=== PATIENT | male | born 1950 | race Caucasian/White ===

== ENCOUNTER → 2017-05-07 | Outpatient (CLI) | payer MEDICARE ==
--- NOTE | 2017-05-07 16:23 | NM ---
EXAMINATION TYPE: NM bone/joint limited DATE OF EXAM: 05/07/2017 COMPARISON: NONE HISTORY: 66-year-old male with lower lumbar pain, worsening on the right. Pressure between the should er blades for 4 months. Frequent falls for one year. TECHNIQUE: After the intravenous administration of 25.8 mCi Tc 99m MDP. Images acquired 3 hours pos t injection. Multiple views of the lower thorax and abdomen are submitted. FINDINGS: No focal abnormal tracer accumulation is identified within the field of view. IMPRESSION: No scintigraphic abnormality by bone scan. The field of view included the lower thorax to the level o f the hips.
== END | disposition home or self-care (01) ==
LOC: RADNMMAIN 11:20
PROVIDERS: ATTEND Family Medicine
DX: M54.5 Low back pain (principal)
CPT/HCPCS: 78300; A9503

== ENCOUNTER 2017-10-18 08:17 | Inpatient (IN) | payer MEDICARE ==
[2017-10-18] MEDS ORDERED: ACETAMINOPHEN IV (For NPO) 1,000 MG in EMPTY BAG 1 BAG IVPB STA (08:38)
[2017-10-18] MEDS ORDERED: IBUPROFEN 600 MG TAB PO STA (08:38)
[2017-10-18] MEDS ORDERED: LEVOFLOXACIN 750MG-D5W PMX 750 MG in DEXTROSE/WATER 1 150ML.BAG IVPB STA (08:40)
[2017-10-18] MEDS ORDERED: IPRATROPIUM-ALBUTEROL 3 ML NEB INHALATION STA ×2 (08:40→11:40)
--- NOTE | 2017-10-18 08:43 | ED ---
General Adult HPI - General Chief complaint: Weakness Stated complaint: Weakness Time Seen by Provider: 10/18/17 08:18 Source: patient, EMS, RN notes reviewed Mode of arrival: EMS Limitations: no limitations - History of Present Illness Initial comments: This is a 67-year-old male who presents emergency Department with a fever. Patient complains he feels weak all over and lightheaded when he stands. Patient states she's also having a hard time breathing. Patient has a history of COPD and hypertension. Patient denies any chest pain or palpitations. Patient denies any abdominal pain. Patient denies nausea vomiting diarrhea. Patient states his urine is dark but there is no dysuria. Patient denies any back pain. Patient denies any headache patient denies numbness or weakness. Patient denies any recent injury or trauma. - Related Data Home Medications Medication Instructions Recorded Confirmed HYDROcodone/APAP 5-325MG [Irwin 1 tab PO Q4HR PRN 01/12/15 10/18/17 5-325] Omeprazole [PriLOSEC] 20 mg PO BID 01/12/15 10/18/17 Potassium Chloride [Klor-Con 20] 20 meq PO BID 01/12/15 10/18/17 Allopurinol [Zyloprim] 300 mg PO DAILY 10/18/17 10/18/17 Amantadine HCl [Symmetrel] 200 mg PO BID 10/18/17 10/18/17 Aspirin 81 mg PO DAILY 10/18/17 10/18/17 Carbidopa-Levodopa 25-100 mg 1 tab PO TID 10/18/17 10/18/17 [Sinemet 25-100] Gabapentin 800 mg PO QID PRN 10/18/17 10/18/17 LORazepam [Ativan] 0.5 mg PO HS PRN 10/18/17 10/18/17 Allergies Allergy/AdvReac Type Severity Reaction Status Date / Time clindamycin Allergy Unknown Verified 10/18/17 10:39 sulfur dioxide AdvReac Itching Verified 10/18/17 10:39 Review of Systems ROS Statement: Those systems with pertinent positive or pertinent negative responses have been documented in the HPI. ROS Other: All systems not noted in ROS Statement are negative. Past Medical History Past Medical History: COPD, Hypertension Additional Past Medical History / Comment(s): 01/12/15 Pt direct admission for N /V/D over the past 3 weeks with last 2 weeks worse. Pt's aptetite poor and is able to only drink water or eat jello or pudding. He states he has lost approximately. 18#s in the past 3 weeks. Pt had upper GI series 01/06/15 which showed mild Gerd with small hiatal hernia. Other HX: mid and low back pain believed to be due to artirtis. History of Any Multi-Drug Resistant Organisms: C-DIFF Date of last positivie culture/infection: 2014 MDRO Source:: stool Past Surgical History: Bowel Resection, Hernia Repair, Tonsillectomy Additional Past Surgical History / Comment(s): Partial colectomy for unknown cause (pt cannot recall why it was necessary), ruptured umbilical repair, bilateral cataract remaoval with lens implants, R elbow repair of tendons/ ligament due toinjury,. bilateral carpal tunnel surgery, colonoscopy since colectomy-normal, EGD long ago possible-pt not sure. Past Anesthesia/Blood Transfusion Reactions: No Reported Reaction Additional Past Anesthesia/Blood Transfusion Reaction / Comment(s): Pt has never recieved blood. Past Psychological History: Bipolar Smoking Status: Current every day smoker Past Alcohol Use History: None Reported Past Drug Use History: None Reported - Past Family History Father Family Medical History: Diabetes Mellitus, Hypertension Additional Family Medical History / Comment(s): Enlarged heart Mother Family Medical History: Diabetes Mellitus, Hypertension General Exam - General Exam Comments Initial Comments: GENERAL: Patient is well-developed and well-nourished. Patient is nontoxic and well- hydrated and is in mild distress. ENT: Neck is soft and supple. No significant lymphadenopathy is noted. Oropharynx is clear. Moist mucous membranes. Neck has full range of motion without eliciting any pain. EYES: The sclera were anicteric and conjunctiva were pink and moist. Extraocular movements were intact and pupils were equal round and reactive to light. Eyelids were unremarkable. PULMONARY: Patient is wheezing diffusely CARDIOVASCULAR: There is a regular rate and rhythm without any murmurs gallops or rubs. ABDOMEN: Soft and nontender with normal bowel sounds. No palpable organomegaly was noted. There is no palpable pulsatile mass. SKIN: Skin is clear with no lesions or rashes and otherwise unremarkable. NEUROLOGIC: Patient is alert and oriented x3. Cranial nerves II through XII are grossly intact. Motor and sensory are also intact. Normal speech, volume and content. Symmetrical smile. MUSCULOSKELETAL: Normal extremities with adequate strength and full range of motion. No lower extremity swelling or edema. No calf tenderness. LYMPHATICS: No significant lymphadenopathy is noted PSYCHIATRIC: Normal psychiatric evaluation. Normal interpersonal interactions appears functionally intact in deals appropriately with others. No signs of depression. No signs of anxiety. Limitations: no limitations Course Vital Signs 10/18/17 10/18/17 10/18/17 08:25 08:52 09:05 Temperature 101.5 F H Pulse Rate 90 103 H 89 Respiratory 22 Rate Blood Pressure 144/70 O2 Sat by Pulse 99 Oximetry 10/18/17 09:52 Temperature Pulse Rate 93 Respiratory 22 Rate Blood Pressure 150/62 O2 Sat by Pulse 96 Oximetry Medical Decision Making - Medical Decision Making EKG shows a normal sinus rhythm at 92 bpm HI interval 254 QRS is 92 QT interval 382 QTC is 472. There is no obvious ST segment elevation. Chest x-ray shows no acute abnormality. There is been no source identified for his fever. I spoke with Dr. Hinds and he did not want to start antibiotics at this time I bring the patient in for COPD exacerbation and for the acute fever. Patient's cultures are being run at this time. - Lab Data Result diagrams: 10/18/17 08:43 10/18/17 08:43 Lab Results 10/18/17 10/18/17 10/18/17 Range/Units 08:43 08:43 08:43 WBC 6.8 (3.8-10.6) k/uL RBC 4.59 (4.30-5.90) m/uL Hgb 11.6 L (13.0-17.5) gm/dL Hct 38.6 L (39.0-53.0) % MCV 83.9 (80.0-100.0) fL MCH 25.2 (25.0-35.0) pg MCHC 30.0 L (31.0-37.0) g/dL RDW 18.6 H (11.5-15.5) % Plt Count 226 (150-450) k/uL Neutrophils % 69 % Lymphocytes % 20 % Monocytes % 6 % Eosinophils % 0 % Basophils % 1 % Neutrophils # 4.7 (1.3-7.7) k/uL Lymphocytes # 1.4 (1.0-4.8) k/uL Monocytes # 0.4 (0-1.0) k/uL Eosinophils # 0.0 (0-0.7) k/uL Basophils # 0.1 (0-0.2) k/uL Hypochromasia Moderate Anisocytosis Slight PT (9.0-12.0) sec INR (<1.2) APTT (22.0-30.0) sec Sodium 142 (137-145) mmol/L Potassium 3.8 (3.5-5.1) mmol/L Chloride 105 (98-107) mmol/L Carbon Dioxide 24 (22-30) mmol/L Anion Gap 13 mmol/L BUN 14 (9-20) mg/dL Creatinine 1.02 (0.66-1.25) mg/dL Est GFR (CKD-EPI)AfAm 89 (>60 ml/min/1.73 sqM) Est GFR (CKD-EPI)NonAf 77 (>60 ml/min/1.73 sqM) Glucose 83 (74-99) mg/dL Plasma Lactic Acid Adeel (0.7-2.0) mmol/L Calcium 8.9 (8.4-10.2) mg/dL Total Bilirubin 0.6 (0.2-1.3) mg/dL AST 23 (17-59) U/L ALT 22 (21-72) U/L Alkaline Phosphatase 231 H (38-126) U/L Total Protein 6.8 (6.3-8.2) g/dL Albumin 3.9 (3.5-5.0) g/dL Urine Color Urine Appearance (Clear) Urine pH (5.0-8.0) Ur Specific [place] (1.001-1.035) Urine Protein (Negative) Urine Glucose (UA) (Negative) Urine Ketones (Negative) Urine Blood (Negative) Urine Nitrite (Negative) Urine Bilirubin (Negative) Urine Urobilinogen (<2.0) mg/dL Ur Leukocyte Esterase (Negative) Urine RBC (0-5) /hpf Urine WBC (0-5) /hpf Hyaline Casts (0-2) /lpf Influenza Type A RNA Not Detected (Not Detectd) Influenza Type B (PCR) Not Detected (Not Detectd) 10/18/17 10/18/17 10/18/17 Range/Units 08:43 08:43 09:45 WBC (3.8-10.6) k/uL RBC (4.30-5.90) m/uL Hgb (13.0-17.5) gm/dL Hct (39.0-53.0) % MCV (80.0-100.0) fL MCH (25.0-35.0) pg MCHC (31.0-37.0) g/dL RDW (11.5-15.5) % Plt Count (150-450) k/uL Neutrophils % % Lymphocytes % % Monocytes % % Eosinophils % % Basophils % % Neutrophils # (1.3-7.7) k/uL Lymphocytes # (1.0-4.8) k/uL Monocytes # (0-1.0) k/uL Eosinophils # (0-0.7) k/uL Basophils # (0-0.2) k/uL Hypochromasia Anisocytosis PT 10.4 (9.0-12.0) sec INR 1.1 (<1.2) APTT 23.3 (22.0-30.0) sec Sodium (137-145) mmol/L Potassium (3.5-5.1) mmol/L Chloride (98-107) mmol/L Carbon Dioxide (22-30) mmol/L Anion Gap mmol/L BUN (9-20) mg/dL Creatinine (0.66-1.25) mg/dL Est GFR (CKD-EPI)AfAm (>60 ml/min/1.73 sqM) Est GFR (CKD-EPI)NonAf (>60 ml/min/1.73 sqM) Glucose (74-99) mg/dL Plasma Lactic Acid Adeel 1.1 (0.7-2.0) mmol/L Calcium (8.4-10.2) mg/dL Total Bilirubin (0.2-1.3) mg/dL AST (17-59) U/L ALT (21-72) U/L Alkaline Phosphatase (38-126) U/L Total Protein (6.3-8.2) g/dL Albumin (3.5-5.0) g/dL Urine Color Yellow Urine Appearance Clear (Clear) Urine pH 6.5 (5.0-8.0) Ur Specific [place] 1.014 (1.001-1.035) Urine Protein 1+ H (Negative) Urine Glucose (UA) Negative (Negative) Urine Ketones 1+ H (Negative) Urine Blood Negative (Negative) Urine Nitrite Negative (Negative) Urine Bilirubin Negative (Negative) Urine Urobilinogen 2.0 (<2.0) mg/dL Ur Leukocyte Esterase Negative (Negative) Urine RBC 1 (0-5) /hpf Urine WBC 2 (0-5) /hpf Hyaline Casts 3 H (0-2) /lpf Influenza Type A RNA (Not Detectd) Influenza Type B (PCR) (Not Detectd) Disposition Clinical Impression: Febrile illness, COPD exacerbation Disposition: ADMITTED IP TO THIS HOSP Referrals: Cosme Louise MD [Primary Care Provider] - 1-2 days Time of Disposition: 11:35
[2017-10-18 08:57] LABS: Anisocytosis Slight; Basophils # (A) 0.1 k/uL (0-0.2); Basophils % (A) 1 %; Eosinophils % (A) 0 %; HCT 38.6 % (39.0-53.0); HGB 11.6 gm/dL (13.0-17.5); Hypochromasia Moderate; Lymphocytes # (A) 1.4 k/uL (1.0-4.8); Lymphocytes % (A) 20 %; MCH 25.2 pg (25.0-35.0); MCV 83.9 fL (80.0-100.0); Mean Platelet Volume 7.8; Monocytes # (A) 0.4 k/uL (0-1.0); Monocytes % (A) 6 %; Neutrophils # (A) 4.7 k/uL (1.3-7.7); Neutrophils % (A) 69 %; Platelet Count 226 k/uL (150-450); RBC 4.59 m/uL (4.30-5.90); RDW 18.6 % (11.5-15.5); WBC 6.8 k/uL (3.8-10.6)
[2017-10-18 09:09] LABS: Albumin 3.9 g/dL (3.5-5.0); Calcium 8.9 mg/dL (8.4-10.2); Potassium 3.8 mmol/L (3.5-5.1); Total Bilirubin 0.6 mg/dL (0.2-1.3); Total Protein 6.8 g/dL (6.3-8.2)
--- NOTE | 2017-10-18 09:26 | XR ---
EXAMINATION TYPE: XR chest 2V DATE OF EXAM: 10/18/2017 HISTORY: Difficulty breathing . REFERENCE: Previous study dated 01/20/2016. FINDINGS: Lung volumes are prominent. The heart is mildly prominent. There is mild interstitial castillo e. This is likely chronic. There is minimal blunting of the left CP angle. This was present previousl y and represent some pleural thickening. IMPRESSION: 1. COPD. 2. MILD CARDIOMEGALY. 3. CHRONIC LEFT PLEURAL REACTION.
[2017-10-18 09:31] LABS: INR 1.1 (<1.2); Partial Thromboplastin Time 23.3 sec (22.0-30.0); Prothrombin Time 10.4 sec (9.0-12.0)
[2017-10-18] MEDS: SODIUM CHLORIDE 0.9% 500 ML IV SCH ×2 (09:35→09:36)
[2017-10-18 10:29] LABS: Appearance,Urine Clear (Clear); Bilirubin,Urine Negative (Negative); Blood,Urine Negative (Negative); Color,Urine Yellow; Glucose,Urine (UA) Negative (Negative); Hyaline Casts,Urine 3 /lpf (0-2); Ketones,Urine 1+ (Negative); Leukocyte Esterase,Urine Negative (Negative); Nitrite,Urine Negative (Negative); PH, Urine 6.5 (5.0-8.0); Protein,Urine 1+ (Negative); RBC,Urine 1 /hpf (0-5); Specific Gravity,Urine 1.014 (1.001-1.035); WBC,Urine 2 /hpf (0-5)
[2017-10-18] MEDS ORDERED: methylPREDNISolone SOD SUCCI 125 MG/2 ML VIAL IV STA (11:35)
[2017-10-18 11:59] LABS: Creatine Kinase MB 1.8 ng/mL (0.0-2.4)
[2017-10-18 12:01] LABS: Troponin I 0.172 ng/mL (0.000-0.034)
--- NOTE | 2017-10-18 13:27 | HP ---
HISTORY AND PHYSICAL CHIEF COMPLAINT: "Weakness." HISTORY OF PRESENT ILLNESS: This is another admission for this 67-year-old white male. He has been having trouble lately, complaining of various issues such as weakness, shortness of breath, cough, and other symptoms. He is a very poor historian. He has a history of heavy alcohol consumption, which has been decreased of late. He has also been a heavy smoker and still has. He has Parkinson's disease. He came to the emergency room with very vague complaints of weakness and continuous cough with somewhat purulent appearance. He has had no fever, chills, chest pain, orthopnea, PND, , abdominal pain, nausea, vomiting, hematemesis, melena, hematochezia, jaundice, hematuria, dysuria, diabetes, etc. Laboratory studies in the emergency room are unremarkable. His chest x-ray demonstrated interstitial scarring consistent with COPD. EKG is normal. His troponin is up slightly. White count was normal and he was mildly anemic. The remainder of his studies were essentially unremarkable. Because of his troponin, vague symptoms and possible underlying infection, he was admitted for further evaluation and testing. Cultures will be obtained. PAST MEDICAL HISTORY, FAMILY HISTORY, PERSONAL AND SOCIAL HISTORIES: Reveal that he is allergic to CLINDAMYCIN. He is on: 1. Symbicort 160/4.5 two puffs b.i.d. 2. Ventolin HFA 2 puffs q.i.d. p.r.n. 3. He recently came off Cipro. 4. He is on potassium 20 mEq twice a day. 5. Carbidopa-levodopa 25-100 t.i.d. 6. Amantadine 100 mg 2 twice a day. 7. Zofran p.r.n. 8. Allopurinol 300 mg once a day. 9. Omeprazole 20 mg twice a day. 10.Gabapentin 800 mg 4 times a day. 11.Vitamin D. 12.Ativan 0.5 at bedtime p.r.n. 13.Vicodin 5-325 q.4 p.r.n. back pain. 14.81 mg of aspirin. He continues to smoke, but he states he has stopped drinking. PHYSICAL EXAM: Blood pressure 116/74 with a pulse of 86, regular respirations of 34 and is afebrile. In general, he appeared to be tremulous due to his Parkinson's disease. Skin color is normal, skin is warm and dry. Lymph nodes are not enlarged. Head, ears, eyes, nose, mouth, and throat were normal. Neck veins are not distended. Chest demonstrated increased AP diameter with poor breath sounds and scattered rales. There is no wheezing. Cardiac exam demonstrates sinus rhythm and no murmurs or extra sounds. The abdomen is slightly protuberant, soft, and he was possibly slightly tender in the left lower quadrant, but this was not consistent. There are no masses or visceromegaly. Bowel sounds are heard. Extremities are normal. Neurologically, other than his Parkinson's tremor, he is normal. IMPRESSION: 1. Generalized weakness. 2. ? septicemia. 3. Elevated troponin. 4. Chronic obstructive pulmonary disease. 5. Parkinson's disease. 6. History of alcohol abuse. PLAN: 1. Bed rest. 2. IV fluids. 3. Cardiology consult. 4. Infectious Disease consult. 5. Appropriate cultures. MMODL / IJN: [id number] /
[2017-10-18] MEDS: IPRATROPIUM-ALBUTEROL 3 ML NEB INHALATION PRN ×2 (15:21→21:16)
[2017-10-18] MEDS: INSULIN ASPART 100 UNIT/ML 1 ML 10 ML VIAL SQ SCH (17:34)
[2017-10-18] MEDS: CARBIDOPA-LEVODOPA 25-100 MG 1 EACH TAB PO SCH ×2 (17:41→20:32)
[2017-10-18] MEDS: methylPREDNISolone SOD SUCCI 125 MG/2 ML VIAL IV SCH (17:43)
[2017-10-18] MEDS: GABAPENTIN 400 MG CAP PO PRN (20:30)
[2017-10-18] MEDS: AMANTADINE HCL 100 MG CAP PO SCH (20:31)
[2017-10-18] MEDS: PANTOPRAZOLE 40 MG TABLET PO SCH (20:32)
[2017-10-18] MEDS: POTASSIUM CHLORIDE ER 20 MEQ TAB.ER PO SCH (20:32)
[2017-10-18 21:01] LABS: Glucose,Whole Blood 162 mg/dL (75-99)
[2017-10-19] MEDS: INSULIN ASPART 100 UNIT/ML 1 ML 10 ML VIAL SQ SCH ×5 (00:03→21:18)
[2017-10-19] MEDS: methylPREDNISolone SOD SUCCI 125 MG/2 ML VIAL IV SCH ×5 (00:15→22:57)
[2017-10-19 06:08] LABS: Glucose,Whole Blood 139 mg/dL (75-99)
[2017-10-19] MEDS: IPRATROPIUM-ALBUTEROL 3 ML NEB INHALATION PRN ×3 (07:55→19:11)
[2017-10-19 07:59] LABS: Anisocytosis Slight; HCT 37.8 % (39.0-53.0); HGB 11.9 gm/dL (13.0-17.5); Hypochromasia Moderate; MCH 26.6 pg (25.0-35.0); MCHC 31.4 g/dL (31.0-37.0); MCV 84.7 fL (80.0-100.0); Mean Platelet Volume 7.6; Platelet Count 234 k/uL (150-450); RBC 4.47 m/uL (4.30-5.90); RDW 18.1 % (11.5-15.5); WBC 6.2 k/uL (3.8-10.6)
[2017-10-19 08:14] LABS: ALT 17 U/L (21-72); AST 14 U/L (17-59); Albumin 3.5 g/dL (3.5-5.0); Alkaline Phosphatase 158 U/L (38-126); Anion Gap 12 mmol/L; Blood Urea Nitrogen 18 mg/dL (9-20); Calcium 9.5 mg/dL (8.4-10.2); Carbon Dioxide 23 mmol/L (22-30); Chloride 107 mmol/L (98-107); Glucose 152 mg/dL (74-99); Magnesium 1.9 mg/dL (1.6-2.3); Potassium 4.5 mmol/L (3.5-5.1); Sodium 142 mmol/L (137-145); Total Bilirubin 0.4 mg/dL (0.2-1.3); Total Protein 6.2 g/dL (6.3-8.2)
[2017-10-19] MEDS: PANTOPRAZOLE 40 MG TABLET PO SCH ×2 (09:00→21:20)
[2017-10-19] MEDS: ASPIRIN 81 MG PO SCH (09:00)
[2017-10-19] MEDS: AMANTADINE HCL 100 MG CAP PO SCH ×2 (09:00→21:19)
[2017-10-19] MEDS: ALLOPURINOL 300 MG TAB PO SCH (09:00)
[2017-10-19] MEDS: CARBIDOPA-LEVODOPA 25-100 MG 1 EACH TAB PO SCH ×3 (09:00→21:20)
[2017-10-19] MEDS: POTASSIUM CHLORIDE ER 20 MEQ TAB.ER PO SCH ×2 (09:01→21:20)
--- NOTE | 2017-10-19 09:37 | CONS ---
CONSULTATION CHIEF COMPLAINT: Elevated troponin. HISTORY OF PRESENT ILLNESS: Felipe is a 67-year-old gentleman with history of parkinsonism and COPD, who presents to the hospital primarily complaining of feeling fatigued, tired and being somewhat unstable on his feet. He also complains of shortness of breath and cough. The patient sees Dr. Louise. Per his notation, the patient has history of ETOH abuse. In the ER for unclear reasons, troponin was done that came back mildly elevated for which Cardiology has been consulted. He does not have any chest pain, palpitations, dizziness or syncope. At the time of my evaluation, he is having his breakfast. Seems somewhat tremulous, but is otherwise doing well. PAST MEDICAL HISTORY: Significant for parkinsonism. MEDICATIONS: Include aspirin, Vicodin, Ativan, Neurontin, omeprazole, allopurinol, Zofran, amantadine, carbidopa, Symbicort, and Ventolin. FAMILY HISTORY: Negative for premature coronary artery disease. SOCIAL HISTORY: Negative for smoking, EtOH abuse, or drug abuse. REVIEW OF SYSTEMS: HEENT is unremarkable. Cardiac as described above. Respiratory negative. GI negative. Genitourinary: Negative. Musculoskeletal significant for arthritis. Psychosocial negative. Endocrine negative. Derm negative. Oncological negative. Rest of the systems review is not relevant. 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 CONSTITUTIONAL: Significant for fatigue, tiredness, and lack of balance. PHYSICAL EXAMINATION: On exam, comfortable at rest. Heart rate is 86 with a blood pressure 130/71, respiratory rate 18. Chest exam reveals diminished air entry at the bases. Heart exam reveals first and second heart sounds. No gallop. Exam of extremities did not reveal any edema. Peripheral pulses are felt. EKG shows sinus rhythm and evidence of prior anterior myocardial infarction. LABORATORY: Hemoglobin of 11.9, creatinine is 0.8, tropes are mildly elevated. ASSESSMENT: 1. Mild troponin elevation of unclear clinical significance in this patient whose clinical presentation is not consistent with acute myocardial ischemia. 2. Chronic obstructive pulmonary disease exacerbation. 3. History of ETOH abuse. 4. Parkinsonism. PLAN: I am going to treat the patient with an aspirin. Check lipid profile. Treat accordingly. I will obtain a 2D echo to assess LV function. We will decide on further course of action based on what the initial workup shows. MMODL / IJN: [id number] /
[2017-10-19] MEDS: GABAPENTIN 400 MG CAP PO PRN ×2 (09:40→21:45)
--- NOTE | 2017-10-19 10:56 | P.CONS ---
History of Present Illness - Reason for Consult Consult date: 10/19/17 - Chief Complaint Fever - History of Present Illness 67-year-old male presents to emergency center with a three-day history of fever with chills associated with increasing shortness of breath he also had several bouts of diarrhea. In general the patient feels quite poorly, shortness of breath is worse than his baseline, is having cough with minimal sputum production. He remains an active tobacco smoker but less than he did in the past. He is denying significant abdominal pain. He is having no nausea or emesis. He is in no hematemesis motor or hematochezia. His appetite has been adequate, he denies any significant weight loss. Review of Systems HEENT:Denies headache or acute visual change. Denies sinus or mouth discomforts. Denies neck stiffness or pain. Denies significant oral cavity pain. Denies difficulty on swallowing. Lungs: As per the HPI has chronic shortness of breath that is worsened, he has cough without much sputum production or hemoptysis Cardiovascular: Denies chest pain, chest wall pain, orthopnea, or syncope, does have dyspnea on exertion Gastrointestinal:Denies nausea, vomiting, constipation, hematemesis, melena, hematochezia. As related was having some loose stool about 3 within the last day, soft with some form Musculoskeletal: denies significant myalgias or arthralgias. No new joint swelling. Denies new back pain. Skin: Denies new rash or lesions. No new ulcers or wounds are related.. Neuro: Denies headache or visual change. Denies any new onset weakness or difficulty with ambulation. Denies falls or seizures. Psychiatric: Chronic anxiety Endocrine: Ongoing chronic fatigue weight is been stable Past Medical History Past Medical History: COPD, Hypertension Additional Past Medical History / Comment(s): nerve pain from, Shingles (2Y ago) , States Dr. Louise stopped his BP pills when he quit drinking. " No longer have high blood pressure" History of Any Multi-Drug Resistant Organisms: C-DIFF Year Discovered:: 2014 MDRO Source:: stool Past Surgical History: Bowel Resection, Hernia Repair, Tonsillectomy Additional Past Surgical History / Comment(s): Partial colectomy for unknown cause (pt cannot recall why it was necessary), ruptured umbilical repair, bilateral cataract remaoval with lens implants, R elbow repair of tendons/ ligament due to injury,. bilateral carpal tunnel surgery, colonoscopy since colectomy-normal, Past Anesthesia/Blood Transfusion Reactions: No Reported Reaction Additional Past Anesthesia/Blood Transfusion Reaction / Comm: Pt has never recieved blood. Past Psychological History: Bipolar Additional Psychological History / Comment(s): Pt's son live with him. Ex spouse lives there as well. He is independent. He is suppose to use a cane but will not. He drives. He has no home care. . Retired labor. No experience. No international travel. Pet dog in the home. Son has legal blindness from his uncontrolled diabetes, the patient's ex- does help with the son and the dog as needed Smoking Status: Current some day smoker Past Alcohol Use History: None Reported Additional Past Alcohol Use History / Comment(s): Pt states he started smoking at age 15 yrs and currently smokes between a pack and a pack and a half a day. He drinks alcohol occasionally- less than 14 a week. Past Drug Use History: None Reported - Past Family History Father Family Medical History: Diabetes Mellitus, Hypertension Additional Family Medical History / Comment(s): Enlarged heart Mother Family Medical History: Diabetes Mellitus, Hypertension Medications and Allergies Home Medications and Allergies Comment(s): Current Medications Acetaminophen (Tylenol Tab) 650 mg PO Q4HR PRN PRN Reason: Fever and/ or mild Pain Albuterol/Ipratropium (Duoneb 0.5 Mg-3 Mg/3 Ml Soln) 3 ml INHALATION RT-Q4H PRN PRN Reason: Shortness Of Breath Or Wheezing Last Admin: 10/19/17 07:55 Dose: 3 ml Allopurinol (Zyloprim) 300 mg PO DAILY [facility] Last Admin: 10/19/17 09:00 Dose: 300 mg Amantadine HCl (Symmetrel) 200 mg PO BID [facility] Last Admin: 10/19/17 09:00 Dose: 200 mg Aspirin (Aspirin) 81 mg PO DAILY [facility] Last Admin: 10/19/17 09:00 Dose: 81 mg Carbidopa/Levodopa (Sinemet 25-100) 1 each PO TID [facility] Last Admin: 10/19/17 09:00 Dose: 1 each Gabapentin (Neurontin) 800 mg PO QID PRN PRN Reason: Nerve Pain Last Admin: 10/19/17 09:40 Dose: 800 mg Insulin Aspart (Novolog) 0 unit SQ ACHS BECK PRN Reason: Protocol Last Admin: 10/19/17 06:50 Dose: 1 unit Lorazepam (Ativan) 0.5 mg PO HS PRN PRN Reason: Anxiety Methylprednisolone Sodium Succinate (Solu-Medrol) 60 mg IV Q6HR [facility] Last Admin: 10/19/17 06:48 Dose: 60 mg Pantoprazole Sodium (Protonix) 40 mg PO BID [facility] Last Admin: 10/19/17 09:00 Dose: 40 mg Potassium Chloride (K-Dur 20) 20 meq PO BID [facility] Last Admin: 10/19/17 09:01 Dose: 20 meq Home Medications Medication Instructions Recorded Confirmed Type HYDROcodone/APAP 5-325MG [[place] 1 tab PO Q4HR PRN 01/12/15 10/18/17 History 5-325] Omeprazole [PriLOSEC] 20 mg PO BID 01/12/15 10/18/17 History Potassium Chloride [Klor-Con 20] 20 meq PO BID 01/12/15 10/18/17 History Allopurinol [Zyloprim] 300 mg PO DAILY 10/18/17 10/18/17 History Amantadine HCl [Symmetrel] 200 mg PO BID 10/18/17 10/18/17 History Aspirin 81 mg PO DAILY 10/18/17 10/18/17 History Carbidopa-Levodopa 25-100 mg 1 tab PO TID 10/18/17 10/18/17 History [Sinemet 25-100] Gabapentin 800 mg PO QID PRN 10/18/17 10/18/17 History LORazepam [Ativan] 0.5 mg PO HS PRN 10/18/17 10/18/17 History Allergies Allergy/AdvReac Type Severity Reaction Status Date / Time clindamycin Allergy Unknown Verified 10/18/17 10:39 sulfur dioxide AdvReac Itching Verified 10/18/17 10:39 Physical Exam Vitals: Vital Signs Temp Pulse Pulse Resp BP BP Pulse Ox 10/19/17 08:08 86 10/19/17 08:00 97.5 F L 89 20 139/67 93 L 10/19/17 07:57 86 10/19/17 04:00 97.9 F 81 20 130/71 96 10/19/17 00:00 97.5 F L 99 20 144/67 95 10/18/17 21:26 90 10/18/17 21:16 88 10/18/17 20:00 97.3 F L 94 20 130/67 100 10/18/17 17:33 97.5 F L 81 20 122/60 97 10/18/17 17:31 81 18 10/18/17 16:54 97.8 F 87 18 131/61 95 10/18/17 15:41 86 10/18/17 15:21 80 10/18/17 14:26 98.0 F 88 18 120/58 96 10/18/17 13:22 97.9 F 85 20 123/61 92 L 10/18/17 12:06 76 10/18/17 11:56 76 10/18/17 11:53 97.5 F L 81 20 122/60 97 10/18/17 11:46 75 22 117/56 97 10/18/17 11:42 98.9 F Intake and Output 10/18/17 10/19/17 10/19/17 22:59 06:59 14:59 Intake Total 100 120 Output Total 0 600 100 Balance 100 -600 20 Intake: Oral 100 120 Output: Urine 0 600 100 Stool 0 0 Other: Voiding Method Toilet Toilet Toilet Urinal Urinal Urinal # Voids 0 0 1 # Bowel Movements 0 Weight 87.6 kg 67-year-old male appears older than his stated age. HEENT: Anicteric conjunctiva are pink and moist nasal mucosa grossly intact without significant lesions, there is no thrush. He is edentulous, no denture Neck: The neck is supple without significant lymphadenopathy or thyromegaly. Lungs: There is symmetrical air entry. There is evidence of expiratory wheezes in all baer. No distinct bronchial sounds. No dullness or egophony Heart: Slightly irregular with an audible S1 and S2 soft S4 There is no significant murmur click or rub, PMI was nondisplaced. Abdomen: Positive bowel sounds soft, scant tenderness in the epigastrium without palpable masses or organomegaly. There was no guarding or rebound. Extremities: Upper shoulders have evidence of probable pulses no open lesions are seen. Lower extremities have bilateral lower extremity edema, no open lesions are seen. Peripheral pulses are palpable with diminished feet are cool but not frankly cold no ischemic ulcers are seen Neuro: Awake alert oriented to person place and time. There are no acute new gross focal sensory motor deficits. Results CBC & Chem 7: 10/19/17 07:37 10/19/17 07:37 Labs: Abnormal Lab Results - Last 24 Hours (Table) 10/18/17 10/18/17 10/18/17 Range/Units 08:43 14:29 20:59 Hgb (13.0-17.5) gm/dL Hct (39.0-53.0) % RDW (11.5-15.5) % Glucose (74-99) mg/dL POC Glucose (mg/dL) 162 H (75-99) mg/dL AST (17-59) U/L ALT (21-72) U/L Alkaline Phosphatase (38-126) U/L Troponin I 0.172 H* 0.115 H* (0.000-0.034) ng/mL Total Protein (6.3-8.2) g/dL 10/18/17 10/19/17 10/19/17 Range/Units 21:14 06:06 07:37 Hgb 11.9 L (13.0-17.5) gm/dL Hct 37.8 L (39.0-53.0) % RDW 18.1 H (11.5-15.5) % Glucose (74-99) mg/dL POC Glucose (mg/dL) 139 H (75-99) mg/dL AST (17-59) U/L ALT (21-72) U/L Alkaline Phosphatase (38-126) U/L Troponin I 0.061 H* (0.000-0.034) ng/mL Total Protein (6.3-8.2) g/dL 10/19/17 Range/Units 07:37 Hgb (13.0-17.5) gm/dL Hct (39.0-53.0) % RDW (11.5-15.5) % Glucose 152 H (74-99) mg/dL POC Glucose (mg/dL) (75-99) mg/dL AST 14 L (17-59) U/L ALT 17 L (21-72) U/L Alkaline Phosphatase 158 H (38-126) U/L Troponin I (0.000-0.034) ng/mL Total Protein 6.2 L (6.3-8.2) g/dL Microbiology - Last 24 Hours (Table) 10/18/17 09:45 Urine Culture - Preliminary Urine,Voided Laboratory Results WBC 6.2 k/uL (3.8-10.6) 10/19/17 07:37 RBC 4.47 m/uL (4.30-5.90) 10/19/17 07:37 Hgb 11.9 gm/dL (13.0-17.5) L 10/19/17 07:37 Hct 37.8 % (39.0-53.0) L 10/19/17 07:37 MCV 84.7 fL (80.0-100.0) 10/19/17 07:37 MCH 26.6 pg (25.0-35.0) 10/19/17 07:37 MCHC 31.4 g/dL (31.0-37.0) 10/19/17 07:37 RDW 18.1 % (11.5-15.5) H 10/19/17 07:37 Plt Count 234 k/uL (150-450) 10/19/17 07:37 Neutrophils % 69 % 10/18/17 08:43 Lymphocytes % 20 % 10/18/17 08:43 Monocytes % 6 % 10/18/17 08:43 Eosinophils % 0 % 10/18/17 08:43 Basophils % 1 % 10/18/17 08:43 Neutrophils # 4.7 k/uL (1.3-7.7) 10/18/17 08:43 Lymphocytes # 1.4 k/uL (1.0-4.8) 10/18/17 08:43 Monocytes # 0.4 k/uL (0-1.0) 10/18/17 08:43 Eosinophils # 0.0 k/uL (0-0.7) 10/18/17 08:43 Basophils # 0.1 k/uL (0-0.2) 10/18/17 08:43 Hypochromasia Moderate 10/19/17 07:37 Anisocytosis Slight 10/19/17 07:37 PT 10.4 sec (9.0-12.0) 10/18/17 08:43 INR 1.1 (<1.2) 10/18/17 08:43 APTT 23.3 sec (22.0-30.0) 10/18/17 08:43 Sodium 142 mmol/L (137-145) 10/19/17 07:37 Potassium 4.5 mmol/L (3.5-5.1) 10/19/17 07:37 Chloride 107 mmol/L (98-107) 10/19/17 07:37 Carbon Dioxide 23 mmol/L (22-30) 10/19/17 07:37 Anion Gap 12 mmol/L 10/19/17 07:37 BUN 18 mg/dL (9-20) 10/19/17 07:37 Creatinine 0.80 mg/dL (0.66-1.25) 10/19/17 07:37 Est GFR (CKD-EPI)AfAm >90 (>60 ml/min/1.73 sqM) 10/19/17 07:37 Est GFR (CKD-EPI)NonAf >90 (>60 ml/min/1.73 sqM) 10/19/17 07:37 Glucose 152 mg/dL (74-99) H 10/19/17 07:37 POC Glucose (mg/dL) 139 mg/dL (75-99) H 10/19/17 06:06 POC Glu Checkout Supervisor DAGO Hilda Enrique 10/19/17 06:06 Plasma Lactic Acid Adeel 1.1 mmol/L (0.7-2.0) 10/18/17 08:43 Calcium 9.5 mg/dL (8.4-10.2) 10/19/17 07:37 Magnesium 1.9 mg/dL (1.6-2.3) 10/19/17 07:37 Total Bilirubin 0.4 mg/dL (0.2-1.3) 10/19/17 07:37 AST 14 U/L (17-59) L 10/19/17 07:37 ALT 17 U/L (21-72) L 10/19/17 07:37 Alkaline Phosphatase 158 U/L (38-126) H 10/19/17 07:37 Total Creatine Kinase 91 U/L (55-170) 10/18/17 08:43 CK-MB (CK-2) 1.8 ng/mL (0.0-2.4) 10/18/17 08:43 CK-MB (CK-2) Rel Index 2.0 10/18/17 08:43 Troponin I 0.061 ng/mL (0.000-0.034) H* 10/18/17 21:14 Total Protein 6.2 g/dL (6.3-8.2) L 10/19/17 07:37 Albumin 3.5 g/dL (3.5-5.0) 10/19/17 07:37 Urine Color Yellow 10/18/17 09:45 Urine Appearance Clear (Clear) 10/18/17 09:45 Urine pH 6.5 (5.0-8.0) 10/18/17 09:[address] 1.014 (1.001-1.035) 10/18/17 09:45 Urine Protein 1+ (Negative) H 10/18/17 09:45 Urine Glucose (UA) Negative (Negative) 10/18/17 09:45 Urine Ketones 1+ (Negative) H 10/18/17 09:45 Urine Blood Negative (Negative) 10/18/17 09:45 Urine Nitrite Negative (Negative) 10/18/17 09:45 Urine Bilirubin Negative (Negative) 10/18/17 09:45 Urine Urobilinogen 2.0 mg/dL (<2.0) 10/18/17 09:45 Ur Leukocyte Esterase Negative (Negative) 10/18/17 09:45 Urine RBC 1 /hpf (0-5) 10/18/17 09:45 Urine WBC 2 /hpf (0-5) 10/18/17 09:45 Hyaline Casts 3 /lpf (0-2) H 10/18/17 09:45 Influenza Type A RNA Not Detected (Not Detectd) 10/18/17 08:43 Influenza Type B (PCR) Not Detected (Not Detectd) 10/18/17 08:43 Microbiology 10/18/17 08:43 Blood Blood Culture - Preliminary No Growth after 24 hours 10/18/17 09:45 Urine,Voided Urine Culture - Preliminary Assessment and Plan (1) COPD exacerbation Current Visit: Yes Status: Acute Code(s): J44.1 - CHRONIC OBSTRUCTIVE PULMONARY DISEASE W (ACUTE) EXACERBATION SNOMED Code(s): 167072424 (2) Febrile illness Narrative/Plan: 67-year-old male presents to Hospital from home with onset of fever, as well as an increasing shortness of breath. Not having significant amounts of cough or sputum production. The patient relates that he has significant fatigue and also had 3 episodes of diarrhea that has now improved today. He was having some vague epigastric discomfort that is generally improved. It is breakfast without great difficulties. Patient's chest x-rays were reviewed that shows evidence of chronic changes of COPD and some pleural thickening which is not new. Patient's fever has improved and is responding to current treatment of his underlying acute exacerbation of COPD. Pulmonary source for fever is still most likely with this situation. Early pneumonia not evident on chest x-ray would be of concern. Antibiotic therapy with Rocephin will be utilized, his heart he had a dose of Levaquin in the emergency center. We'll monitor further fever. If fever remains resolved but has no other symptoms he be transitioned to a 5 day course of antibiotics for the acute exacerbation of his COPD. Current Visit: Yes Status: Acute Code(s): R50.9 - FEVER, UNSPECIFIED SNOMED Code(s): 159170609
[2017-10-19] MEDS: cefTRIAXone IN SWFI 1,000 MG/10 ML SYRINGE IVP SCH (11:57)
[2017-10-19 12:19] LABS: Glucose,Whole Blood 147 mg/dL (75-99)
[2017-10-19 16:37] LABS: Glucose,Whole Blood 174 mg/dL (75-99)
[2017-10-19 20:24] LABS: Glucose,Whole Blood 163 mg/dL (75-99)
[2017-10-19] MEDS: ACETAMINOPHEN TAB 325 MG TAB PO PRN (21:24)
[2017-10-19] MEDS: LORazepam 0.5 MG TAB PO PRN (21:45)
[2017-10-20] MEDS: methylPREDNISolone SOD SUCCI 125 MG/2 ML VIAL IV SCH ×4 (05:47→23:27)
[2017-10-20] MEDS: GABAPENTIN 400 MG CAP PO PRN ×3 (05:48→22:14)
[2017-10-20 05:53] LABS: Glucose,Whole Blood 135 mg/dL (75-99)
[2017-10-20] MEDS: INSULIN ASPART 100 UNIT/ML 1 ML 10 ML VIAL SQ SCH ×4 (05:55→22:22)
[2017-10-20 06:50] LABS: Anisocytosis Slight; HCT 38.6 % (39.0-53.0); HGB 11.9 gm/dL (13.0-17.5); Hypochromasia Moderate; MCH 26.4 pg (25.0-35.0); MCHC 30.9 g/dL (31.0-37.0); MCV 85.4 fL (80.0-100.0); Mean Platelet Volume 7.8; Platelet Count 257 k/uL (150-450); RBC 4.52 m/uL (4.30-5.90); RDW 18.2 % (11.5-15.5); WBC 9.1 k/uL (3.8-10.6)
[2017-10-20 07:07] LABS: Anion Gap 11 mmol/L; Blood Urea Nitrogen 25 mg/dL (9-20); Calcium 9.9 mg/dL (8.4-10.2); Carbon Dioxide 25 mmol/L (22-30); Chloride 109 mmol/L (98-107); Glucose 118 mg/dL (74-99); Potassium 4.8 mmol/L (3.5-5.1); Sodium 145 mmol/L (137-145)
[2017-10-20] MEDS: cefTRIAXone IN SWFI 1,000 MG/10 ML SYRINGE IVP SCH (08:52)
[2017-10-20] MEDS: ASPIRIN 81 MG PO SCH (08:52)
[2017-10-20] MEDS: AMANTADINE HCL 100 MG CAP PO SCH ×2 (08:52→20:17)
[2017-10-20] MEDS: CARBIDOPA-LEVODOPA 25-100 MG 1 EACH TAB PO SCH ×3 (08:52→20:17)
[2017-10-20] MEDS: ALLOPURINOL 300 MG TAB PO SCH (08:52)
[2017-10-20] MEDS: PANTOPRAZOLE 40 MG TABLET PO SCH ×2 (08:52→20:17)
[2017-10-20] MEDS: POTASSIUM CHLORIDE ER 20 MEQ TAB.ER PO SCH ×2 (08:53→20:17)
[2017-10-20 11:58] LABS: Glucose,Whole Blood 126 mg/dL (75-99)
[2017-10-20 12:00] LABS: T4, Free (Free Thyroxine) 1.05 ng/dL (0.78-2.19)
--- NOTE | 2017-10-20 13:05 | ECHOF ---
Referral Reason:elevated troponin MEASUREMENTS -------- HEIGHT: 170.2 cm WEIGHT: 84.8 kg BP: 159/68 RVIDd: 3.4 cm (< 3.3) IVSd: 1.6 cm (0.6 - 1.1) LVIDd: 6.2 cm (3.9 - 5.3) LVPWd: 1.4 cm (0.6 - 1.1) IVSs: 2.1 cm LVIDs: 4.3 cm LVPWs: 2.1 cm LAESV Index (A-L): 42.50 ml/m Ao Diam: 3.6 cm (2.0 - 3.7) MV EXCURSION: 14.425 mm (> 18.000) MV EF SLOPE: 29 mm/s (70 - 150) EPSS: 1.2 cm MV E Mahendra: 0.82 m/s MV DecT: 306 ms MV A Mahendra: 1.18 m/s MV E/A Ratio: 0.69 AV maxP.37 mmHg AV meanP.33 mmHg AR PHT: 519 ms RAP: 5.00 mmHg RVSP: 43.76 mmHg FINDINGS -------- Sinus rhythm. This was a technically adequate study. The left ventricle is mildly dilated. There is moderate concentric left ventricular hypertrophy. Overall left ventricular systolic function is normal with, an EF between 55 - 60 %. The right ventricle is normal in size. LA is moderately dilated 34-39 ml/m2 The right atrium is normal in size. There is mild aortic valve sclerosis. There is mild aortic stenosis present. Peak/mean gradient a cross the Aortic Valve is 26.37mmHg / 13.33mmHg. Mild mitral annular calcification present. Mild mitral regurgitation is present. The tricuspid valve appears structurally normal. The pulmonic valve was not well visualized. The aortic root size is normal. The inferior vena cava is mildly dilated. There is no pericardial effusion. CONCLUSIONS -------- 1. Sinus rhythm. 2. This was a technically adequate study. 3. The left ventricle is mildly dilated. 4. There is moderate concentric left ventricular hypertrophy. 5. Overall left ventricular systolic function is normal with, an EF between 55 - 60 %. 6. The right ventricle is normal in size. 7. LA is moderately dilated 34-39 ml/m2 8. The right atrium is normal in size. 9. There is mild aortic valve sclerosis. 10. There is mild aortic stenosis present. 11. Peak/mean gradient across the Aortic Valve is 26.37mmHg / 13.33mmHg. 12. Mild mitral annular calcification present. 13. Mild mitral regurgitation is present. 14. The tricuspid valve appears structurally normal. 15. The pulmonic valve was not well visualized. 16. The aortic root size is normal. 17. The inferior vena cava is mildly dilated. 18. There is no pericardial effusion. SERGING MACHINE OPERATOR AUTOMATIC: Rocio Montes De Oca RDCS
[2017-10-20 14:18] VITALS: BMI 29.2
--- NOTE | 2017-10-20 14:38 | P.PN ---
Subjective Progress Note Date: 10/20/17 Principal diagnosis: Elevated troponin This is a 67-year-old gentleman with history of Parkinson's, COPD, who presented to the hospital with symptoms of fatigue, tiredness, and instability. Patient also has history of EtOH abuse. Because of abnormality in troponin and a cardiology consultation was requested. Patient was seen in consult yesterday by Dr. Licona. Troponin abnormality not consistent with acute coronary syndrome, likely secondary to supply demand mismatch. He denied having any chest discomfort. An echocardiogram with Doppler study was performed which revealed an ejection fraction of 55-60%. Objective - Vital Signs Vital signs: Vital Signs Temp 97 F L 10/20/17 08:00 Pulse 80 10/20/17 11:40 Resp 16 10/20/17 11:40 BP 145/78 10/20/17 11:40 Pulse Ox 91 L 10/20/17 11:40 Intake & Output 10/19/17 10/20/17 10/20/17 18:59 06:59 18:59 Intake Total 636 10 Output Total 300 125 Balance 336 -115 Weight 84.9 kg 84.9 kg Intake: IV 10 0.9 10 Oral 636 Output: Urine 300 125 Stool 0 Other: Voiding Method Toilet Toilet Toilet Urinal Urinal Urinal # Voids 1 - Exam PHYSICAL EXAMINATION: HEENT: Head is atraumatic, normocephalic. Pupils equal, round. Neck is supple. There is no elevated jugular venous pressure. HEART EXAMINATION: Heart S1, S2 normal. No murmur or gallop heard. CHEST EXAMINATION: Runs are clear with diminished air entry to the bases. ABDOMEN: Soft, nontender. Bowel sounds are heard. No organomegaly noted. EXTREMITIES: 2+ peripheral pulses with no evidence of peripheral edema and no calf tenderness noted. NEUROLOGIC patient is awake, alert and oriented -2. . - Labs CBC & Chem 7: 10/20/17 06:33 10/20/17 06:33 Labs: Abnormal Lab Results - Last 24 Hours (Table) 10/19/17 10/19/17 10/20/17 Range/Units 16:29 20:22 05:52 Hgb (13.0-17.5) gm/dL Hct (39.0-53.0) % MCHC (31.0-37.0) g/dL RDW (11.5-15.5) % Chloride (98-107) mmol/L BUN (9-20) mg/dL Glucose (74-99) mg/dL POC Glucose (mg/dL) 174 H 163 H 135 H (75-99) mg/dL 10/20/17 10/20/17 10/20/17 Range/Units 06:33 06:33 11:52 Hgb 11.9 L (13.0-17.5) gm/dL Hct 38.6 L (39.0-53.0) % MCHC 30.9 L (31.0-37.0) g/dL RDW 18.2 H (11.5-15.5) % Chloride 109 H (98-107) mmol/L BUN 25 H (9-20) mg/dL Glucose 118 H (74-99) mg/dL POC Glucose (mg/dL) 126 H (75-99) mg/dL Microbiology - Last 24 Hours (Table) 10/18/17 08:43 Blood Culture - Preliminary Blood No Growth after 48 hours 10/18/17 09:45 Urine Culture - Final Urine,Voided Assessment and Plan Plan: Assessment and plan #1 exacerbation of COPD #2 mild abnormality in troponins, not consistent with acute coronary syndrome, likely secondary to supply demand mismatch. Echo reveals normal left ventricular systolic function. #3 EtOH abuse #4 parkinsonism Plan From cardiology's perspective, this patient with you now on an as-needed basis only, least on hesitate to call with any questions. DNP note has been reviewed, I agree with a documented findings and plan of care. Patient was seen and examined.
[2017-10-20] MEDS ORDERED: NICOTINE 21MG/24HR PATCH TRANSDERM STA (15:13)
[2017-10-20 16:51] LABS: Glucose,Whole Blood 151 mg/dL (75-99)
--- NOTE | 2017-10-20 16:56 | PN ---
PROGRESS NOTE DATE OF SERVICE: 10/19/17 CHIEF COMPLAINT: Generalized weakness, COPD and Parkinson disease. HISTORY OF PRESENT ILLNESS: This gentleman continues to complain basically of weakness. He is also having increasing shortness of breath. The etiology for these issues is not entirely clear and may be related more to his COPD and his Parkinson disease. PHYSICAL EXAM: Breath sounds are poor but they are clear. Cardiac exam is normal. Abdomen is soft, nontender. IMPRESSION: 1. Shortness of breath. 2. Parkinson disease. 3. Generalized weakness. 4. Chronic obstructive pulmonary disease. PLAN: Continue workup and he awaits his echocardiogram and he is being followed by Cardiology. MMODL / IJN: [id number] /
--- NOTE | 2017-10-20 18:17 | PN ---
PROGRESS NOTE CHIEF COMPLAINT: Shortness of breath. HISTORY OF PRESENT ILLNESS: This gentleman is in process of having his echocardiogram done. He continues to have shortness of breath and workup continues. IMPRESSION: 1. Shortness of breath, etiology unknown. 2. Generalized weakness. 3. Chronic obstructive pulmonary disease. 4. Elevated troponin. 5. Chronic obstructive pulmonary disease. 6. Parkinson disease. PLAN: Continue workup and await results of studies that are still pending. MMODL / IJN: [id number] /
[2017-10-20] MEDS: IPRATROPIUM-ALBUTEROL 3 ML NEB INHALATION PRN (19:30)
[2017-10-20] MEDS: ACETAMINOPHEN TAB 325 MG TAB PO PRN (20:32)
[2017-10-20 20:55] LABS: Glucose,Whole Blood 148 mg/dL (75-99)
--- NOTE | 2017-10-20 21:24 | P.PN ---
Subjective Progress Note Date: 10/20/17 Principal diagnosis: Shortness of breath Objective - Vital Signs Vital signs: Vital Signs Temp 97.5 F L 10/20/17 15:58 Pulse 96 10/20/17 19:42 Resp 18 10/20/17 16:00 BP 145/65 10/20/17 15:58 Pulse Ox 92 L 10/20/17 15:58 Intake & Output 10/20/17 10/20/17 10/21/17 06:59 18:59 06:59 Intake Total 10 237 Output Total 125 400 Balance -115 -163 Weight 84.9 kg 84.9 kg Intake: IV 10 0.9 10 Oral 237 Output: Urine 125 400 Stool 0 0 Other: Voiding Method Toilet Toilet Urinal Urinal # Voids 1 - Exam 67-year-old male appears older than his stated age. HEENT: Anicteric conjunctiva are pink and moist nasal mucosa grossly intact without significant lesions, there is no thrush. He is edentulous, no denture Neck: The neck is supple without significant lymphadenopathy or thyromegaly. Lungs: There is symmetrical air entry. There is evidence of expiratory wheezes in all baer. No distinct bronchial sounds. No dullness or egophony Heart: Slightly irregular with an audible S1 and S2 soft S4 There is no significant murmur click or rub, PMI was nondisplaced. Abdomen: Positive bowel sounds soft, scant tenderness in the epigastrium without palpable masses or organomegaly. There was no guarding or rebound. Extremities: Upper shoulders have evidence of probable pulses no open lesions are seen. Lower extremities have bilateral lower extremity edema, no open lesions are seen. Peripheral pulses are palpable with diminished feet are cool but not frankly cold no ischemic ulcers are seen Neuro: Awake alert oriented to person place and time. There are no acute new gross focal sensory motor deficits. - Labs CBC & Chem 7: 10/20/17 06:33 10/20/17 06:33 Labs: Abnormal Lab Results - Last 24 Hours (Table) 10/20/17 10/20/17 10/20/17 Range/Units 05:52 06:33 06:33 Hgb 11.9 L (13.0-17.5) gm/dL Hct 38.6 L (39.0-53.0) % MCHC 30.9 L (31.0-37.0) g/dL RDW 18.2 H (11.5-15.5) % Chloride 109 H (98-107) mmol/L BUN 25 H (9-20) mg/dL Glucose 118 H (74-99) mg/dL POC Glucose (mg/dL) 135 H (75-99) mg/dL 10/20/17 10/20/17 10/20/17 Range/Units 11:52 16:22 20:53 Hgb (13.0-17.5) gm/dL Hct (39.0-53.0) % MCHC (31.0-37.0) g/dL RDW (11.5-15.5) % Chloride (98-107) mmol/L BUN (9-20) mg/dL Glucose (74-99) mg/dL POC Glucose (mg/dL) 126 H 151 H 148 H (75-99) mg/dL Microbiology - Last 24 Hours (Table) 10/18/17 08:43 Blood Culture - Preliminary Blood No Growth after 48 hours 10/18/17 09:45 Urine Culture - Final Urine,Voided Laboratory Results WBC 9.1 k/uL (3.8-10.6) 10/20/17 06:33 RBC 4.52 m/uL (4.30-5.90) 10/20/17 06:33 Hgb 11.9 gm/dL (13.0-17.5) L 10/20/17 06:33 Hct 38.6 % (39.0-53.0) L 10/20/17 06:33 MCV 85.4 fL (80.0-100.0) 10/20/17 06:33 MCH 26.4 pg (25.0-35.0) 10/20/17 06:33 MCHC 30.9 g/dL (31.0-37.0) L 10/20/17 06:33 RDW 18.2 % (11.5-15.5) H 10/20/17 06:33 Plt Count 257 k/uL (150-450) 10/20/17 06:33 Neutrophils % 69 % 10/18/17 08:43 Lymphocytes % 20 % 10/18/17 08:43 Monocytes % 6 % 10/18/17 08:43 Eosinophils % 0 % 10/18/17 08:43 Basophils % 1 % 10/18/17 08:43 Neutrophils # 4.7 k/uL (1.3-7.7) 10/18/17 08:43 Lymphocytes # 1.4 k/uL (1.0-4.8) 10/18/17 08:43 Monocytes # 0.4 k/uL (0-1.0) 10/18/17 08:43 Eosinophils # 0.0 k/uL (0-0.7) 10/18/17 08:43 Basophils # 0.1 k/uL (0-0.2) 10/18/17 08:43 Hypochromasia Moderate 10/20/17 06:33 Anisocytosis Slight 10/20/17 06:33 PT 10.4 sec (9.0-12.0) 10/18/17 08:43 INR 1.1 (<1.2) 10/18/17 08:43 APTT 23.3 sec (22.0-30.0) 10/18/17 08:43 Sodium 145 mmol/L (137-145) 10/20/17 06:33 Potassium 4.8 mmol/L (3.5-5.1) 10/20/17 06:33 Chloride 109 mmol/L (98-107) H 10/20/17 06:33 Carbon Dioxide 25 mmol/L (22-30) 10/20/17 06:33 Anion Gap 11 mmol/L 10/20/17 06:33 BUN 25 mg/dL (9-20) H 10/20/17 06:33 Creatinine 0.82 mg/dL (0.66-1.25) 10/20/17 06:33 Est GFR (CKD-EPI)AfAm >90 (>60 ml/min/1.73 sqM) 10/20/17 06:33 Est GFR (CKD-EPI)NonAf >90 (>60 ml/min/1.73 sqM) 10/20/17 06:33 Glucose 118 mg/dL (74-99) H 10/20/17 06:33 POC Glucose (mg/dL) 148 mg/dL (75-99) H 10/20/17 20:53 POC Glu Line Service Attendant DAGO Anastasiia Saldana 10/20/17 20:53 Plasma Lactic Acid Adeel 1.1 mmol/L (0.7-2.0) 10/18/17 08:43 Calcium 9.9 mg/dL (8.4-10.2) 10/20/17 06:33 Magnesium 2.0 mg/dL (1.6-2.3) 10/20/17 06:33 Total Bilirubin 0.4 mg/dL (0.2-1.3) 10/19/17 07:37 AST 14 U/L (17-59) L 10/19/17 07:37 ALT 17 U/L (21-72) L 10/19/17 07:37 Alkaline Phosphatase 158 U/L (38-126) H 10/19/17 07:37 Total Creatine Kinase 91 U/L (55-170) 10/18/17 08:43 CK-MB (CK-2) 1.8 ng/mL (0.0-2.4) 10/18/17 08:43 CK-MB (CK-2) Rel Index 2.0 10/18/17 08:43 Troponin I 0.061 ng/mL (0.000-0.034) H* 10/18/17 21:14 Total Protein 6.2 g/dL (6.3-8.2) L 10/19/17 07:37 Albumin 3.5 g/dL (3.5-5.0) 10/19/17 07:37 TSH 1.100 mIU/L (0.465-4.680) 10/20/17 06:33 Free T4 1.05 ng/dL (0.78-2.19) 10/20/17 06:33 Urine Color Yellow 10/18/17 09:45 Urine Appearance Clear (Clear) 10/18/17 09:45 Urine pH 6.5 (5.0-8.0) 10/18/17 09:45 Ur Specific Oliver 1.014 (1.001-1.035) 10/18/17 09:45 Urine Protein 1+ (Negative) H 10/18/17 09:45 Urine Glucose (UA) Negative (Negative) 10/18/17 09:45 Urine Ketones 1+ (Negative) H 10/18/17 09:45 Urine Blood Negative (Negative) 10/18/17 09:45 Urine Nitrite Negative (Negative) 10/18/17 09:45 Urine Bilirubin Negative (Negative) 10/18/17 09:45 Urine Urobilinogen 2.0 mg/dL (<2.0) 10/18/17 09:45 Ur Leukocyte Esterase Negative (Negative) 10/18/17 09:45 Urine RBC 1 /hpf (0-5) 10/18/17 09:45 Urine WBC 2 /hpf (0-5) 10/18/17 09:45 Hyaline Casts 3 /lpf (0-2) H 10/18/17 09:45 Influenza Type A RNA Not Detected (Not Detectd) 10/18/17 08:43 Influenza Type B (PCR) Not Detected (Not Detectd) 10/18/17 08:43 Microbiology 10/18/17 08:43 Blood Blood Culture - Preliminary No Growth after 48 hours 10/18/17 09:45 Urine,Voided Urine Culture - Final Assessment and Plan (1) COPD exacerbation Current Visit: Yes Status: Acute Code(s): J44.1 - CHRONIC OBSTRUCTIVE PULMONARY DISEASE W (ACUTE) EXACERBATION SNOMED Code(s): 903933686 (2) Febrile illness Narrative/Plan: 67-year-old male presents to Hospital from home with onset of fever, as well as an increasing shortness of breath. Not having significant amounts of cough or sputum production. The patient relates that he has significant fatigue and also had 3 episodes of diarrhea that has now improved today. He was having some vague epigastric discomfort that is generally improved. It is breakfast without great difficulties. Patient's chest x-rays were reviewed that shows evidence of chronic changes of COPD and some pleural thickening which is not new. Patient's fever has improved and is responding to current treatment of his underlying acute exacerbation of COPD. Pulmonary source for fever is still most likely with this situation. Early pneumonia not evident on chest x-ray would be of concern. Antibiotic therapy with Rocephin will be utilized, he had had a dose of Levaquin in the emergency center. We'll monitor further fever. If fever remains resolved but has no other symptoms he be transitioned to a 5 day course of antibiotics for the acute exacerbation of his COPD. 10/20/2017 reveals patient to be still somewhat short of breath. Slightly improved since admission. Still having some cough without much sputum production. Denies high-grade fever chills or rigors. He is denying any other interim new difficulty at this time. Would like to have a walker so that he can more readily ambulate to the restroom. Continue Rocephin for now as well as the treatment for his underlying exacerbation of COPD. Evidence of any new infections at this time blood and urine cultures negative so far. Current Visit: Yes Status: Acute Code(s): R50.9 - FEVER, UNSPECIFIED SNOMED Code(s): 635596276
[2017-10-20 21:48] LABS: Hemoglobin A1C 5.4 % (4.0-6.0)
[2017-10-20] MEDS: traZODone HCL 50 MG TAB PO SCH (22:13)
[2017-10-21] MEDS: LORazepam 0.5 MG TAB PO PRN ×2 (02:59→22:34)
[2017-10-21 06:01] LABS: Glucose,Whole Blood 157 mg/dL (75-99)
[2017-10-21] MEDS: INSULIN ASPART 100 UNIT/ML 1 ML 10 ML VIAL SQ SCH ×4 (06:43→22:34)
[2017-10-21] MEDS: methylPREDNISolone SOD SUCCI 125 MG/2 ML VIAL IV SCH ×4 (06:44→23:35)
[2017-10-21] MEDS: IPRATROPIUM-ALBUTEROL 3 ML NEB INHALATION PRN ×4 (08:49→20:04)
[2017-10-21] MEDS: AMANTADINE HCL 100 MG CAP PO SCH ×2 (09:16→20:50)
[2017-10-21] MEDS: CARBIDOPA-LEVODOPA 25-100 MG 1 EACH TAB PO SCH ×3 (09:16→20:50)
[2017-10-21] MEDS: POTASSIUM CHLORIDE ER 20 MEQ TAB.ER PO SCH ×2 (09:16→20:50)
[2017-10-21] MEDS: PANTOPRAZOLE 40 MG TABLET PO SCH ×2 (09:16→20:50)
[2017-10-21] MEDS: NICOTINE 21MG/24HR PATCH TRANSDERM SCH (09:16)
[2017-10-21] MEDS: cefTRIAXone IN SWFI 1,000 MG/10 ML SYRINGE IVP SCH (09:16)
[2017-10-21] MEDS: ASPIRIN 81 MG PO SCH (09:16)
[2017-10-21] MEDS: ALLOPURINOL 300 MG TAB PO SCH (09:19)
[2017-10-21 11:25] LABS: Glucose,Whole Blood 110 mg/dL (75-99)
[2017-10-21] MEDS: GABAPENTIN 300 MG CAP PO SCH ×3 (12:05→20:50)
[2017-10-21 16:31] LABS: Glucose,Whole Blood 214 mg/dL (75-99)
--- NOTE | 2017-10-21 18:07 | PN ---
PROGRESS NOTE CHIEF COMPLAINT: Shortness of breath and weakness. HISTORY OF PRESENT ILLNESS: This gentleman is a feeling a little bit better, but not a great deal. He is still tremulous and this is thought mostly to be due to his Parkinson disease, but a relative called that even though he states he is not drinking, he is, and he is drinking a lot. Watching for DTs would have to be a possibility. Echocardiogram was done and it was essentially unremarkable. PHYSICAL EXAMINATION: Vital signs are normal. The chest is clear. Cardiac exam is normal. The abdomen is soft and nontender. IMPRESSION: 1. Fever of unknown origin, resolved. 2. Generalized weakness, etiology unknown. 3. Chronic obstructive pulmonary disease. 4. Alcoholism. 5. Parkinson's disease. PLAN: 1. He is requesting Neurontin. He will be placed back on this. 2. We will continue to watch for DTs. If he remains fairly stable over the next several days, he will be discharged home. AMPARO / DYLAN: [id number] /
[2017-10-21 21:03] LABS: Glucose,Whole Blood 199 mg/dL (75-99)
[2017-10-21] MEDS: traZODone HCL 50 MG TAB PO SCH (22:34)
--- NOTE | 2017-10-21 23:36 | P.PN ---
Subjective Progress Note Date: 10/21/17 Principal diagnosis: Shortness of breath 67-year-old male presents to emergency center with a three-day history of fever with chills associated with increasing shortness of breath he also had several bouts of diarrhea. In general the patient feels quite poorly, shortness of breath is worse than his baseline, is having cough with minimal sputum production. He remains an active tobacco smoker but less than he did in the past. He is denying significant abdominal pain. He is having no nausea or emesis. He is in no hematemesis melena or hematochezia. His appetite has been adequate, he denies any significant weight loss. 10/21/2017 patient feels better but still short of breath, fever and chills have resolved. Minimal sputum production without hemoptysis. Still not at his baseline. NoOther new acute complaints today. Objective - Vital Signs Vital signs: Vital Signs Temp 97.5 F L 10/21/17 16:00 Pulse 96 10/21/17 20:14 Resp 17 10/21/17 20:00 BP 138/74 10/21/17 20:00 Pulse Ox 97 10/21/17 20:00 Intake & Output 10/21/17 10/21/17 10/22/17 06:59 18:59 06:59 Intake Total 702 Output Total 800 Balance -98 Weight 88.7 kg Intake: Oral 702 Output: Urine 800 Stool 0 Other: Voiding Method Toilet Toilet Toilet Urinal Urinal Urinal # Voids 1 3 1 - Exam 67-year-old male appears older than his stated age. HEENT: Anicteric conjunctiva are pink and moist nasal mucosa grossly intact without significant lesions, there is no thrush. He is edentulous, no denture Neck: The neck is supple without significant lymphadenopathy or thyromegaly. Lungs: There is symmetrical air entry. There is evidence of expiratory wheezes in all baer. No distinct bronchial sounds. No dullness or egophony Heart: Slightly irregular with an audible S1 and S2 soft S4 There is no significant murmur click or rub, PMI was nondisplaced. Abdomen: Positive bowel sounds soft, scant tenderness in the epigastrium without palpable masses or organomegaly. There was no guarding or rebound. Extremities: Upper shoulders have evidence of probable pulses no open lesions are seen. Lower extremities have bilateral lower extremity edema, no open lesions are seen. Peripheral pulses are palpable with diminished feet are cool but not frankly cold no ischemic ulcers are seen Neuro: Awake alert oriented to person place and time. There are no acute new gross focal sensory motor deficits. - Labs CBC & Chem 7: 10/20/17 06:33 10/20/17 06:33 Labs: Abnormal Lab Results - Last 24 Hours (Table) 10/21/17 10/21/17 10/21/17 Range/Units 05:56 11:18 16:22 POC Glucose (mg/dL) 157 H 110 H 214 H (75-99) mg/dL 10/21/17 Range/Units 21:01 POC Glucose (mg/dL) 199 H (75-99) mg/dL Microbiology - Last 24 Hours (Table) 10/18/17 08:43 Blood Culture - Preliminary Blood No Growth after 72 hours Assessment and Plan (1) COPD exacerbation Current Visit: Yes Status: Acute Code(s): J44.1 - CHRONIC OBSTRUCTIVE PULMONARY DISEASE W (ACUTE) EXACERBATION SNOMED Code(s): 548307250 (2) Febrile illness Narrative/Plan: 67-year-old male presents to Hospital from home with onset of fever, as well as an increasing shortness of breath. Not having significant amounts of cough or sputum production. The patient relates that he has significant fatigue and also had 3 episodes of diarrhea that has now improved today. He was having some vague epigastric discomfort that is generally improved. It is breakfast without great difficulties. Patient's chest x-rays were reviewed that shows evidence of chronic changes of COPD and some pleural thickening which is not new. Patient's fever has improved and is responding to current treatment of his underlying acute exacerbation of COPD. Pulmonary source for fever is still most likely with this situation. Early pneumonia not evident on chest x-ray would be of concern. Antibiotic therapy with Rocephin will be utilized, he had had a dose of Levaquin in the emergency center. We'll monitor further fever. If fever remains resolved but has no other symptoms he be transitioned to a 5 day course of antibiotics for the acute exacerbation of his COPD. 10/20/2017 reveals patient to be still somewhat short of breath. Slightly improved since admission. Still having some cough without much sputum production. Denies high-grade fever chills or rigors. He is denying any other interim new difficulty at this time. Would like to have a walker so that he can more readily ambulate to the restroom. Continue Rocephin for now as well as the treatment for his underlying exacerbation of COPD. Evidence of any new infections at this time blood and urine cultures negative so far. 10/21/2017 patient remained short of breath. The exacerbation of COPD continues to be problematic. He seems to responding to treatments in Avelox therapy was with Rocephin at this time. No new positive cultures and fever does appears to be controlled. Unclear what the overall discharge plan will be at this time Current Visit: Yes Status: Acute Code(s): R50.9 - FEVER, UNSPECIFIED SNOMED Code(s): 063820604
[2017-10-22] MEDS: methylPREDNISolone SOD SUCCI 125 MG/2 ML VIAL IV SCH ×2 (06:22→12:06)
[2017-10-22 06:25] LABS: Glucose,Whole Blood 140 mg/dL (75-99)
[2017-10-22] MEDS: INSULIN ASPART 100 UNIT/ML 1 ML 10 ML VIAL SQ SCH ×2 (06:26→12:05)
[2017-10-22] MEDS: IPRATROPIUM-ALBUTEROL 3 ML NEB INHALATION PRN ×2 (08:13→11:06)
[2017-10-22] MEDS: ASPIRIN 81 MG PO SCH (08:16)
[2017-10-22] MEDS: CARBIDOPA-LEVODOPA 25-100 MG 1 EACH TAB PO SCH (08:16)
[2017-10-22] MEDS: AMANTADINE HCL 100 MG CAP PO SCH (08:17)
[2017-10-22] MEDS: GABAPENTIN 300 MG CAP PO SCH (08:17)
[2017-10-22] MEDS: PANTOPRAZOLE 40 MG TABLET PO SCH (08:17)
[2017-10-22] MEDS: ALLOPURINOL 300 MG TAB PO SCH (08:17)
[2017-10-22] MEDS: cefTRIAXone IN SWFI 1,000 MG/10 ML SYRINGE IVP SCH (08:17)
[2017-10-22] MEDS: NICOTINE 21MG/24HR PATCH TRANSDERM SCH (08:17)
[2017-10-22] MEDS: POTASSIUM CHLORIDE ER 20 MEQ TAB.ER PO SCH (08:17)
[2017-10-22 08:28] VITALS: PULSE 86; RESP 18
--- NOTE | 2017-10-22 10:36 | CDI ---
Last Revision, June 2017 Documentation Clarification Form Date: 10/22/17 1030 From: Cookie Davila RN, CCDS Admit Date: 10/18/2017 11:35:00 AM Patient Name: Felipe Kim I Visit Number: [id number] ATTENTION: The Clinical Documentation Specialists (CDI) and [facility] Coding Staff appreciate your assistance in clarifying documentation. Please respond to the clarification below the line at the bottom and electronically sign. The CDI & [facility] Coding staff will review the response and follow-up if needed. Please note: Queries are made part of the Legal Health Record. If you have any questions, please contact the author of this message via ITS. Dr. Cosme Louise Documentation and location in medical record included "Septicemia" in the H&P. History/Risk Factors: COPD, Smoker, Parkinson's Disease, Hx of ETOH Abuse Clinical Indicators: WBC: 6.8/6.2/9.1 Left Shift: 4.7 Lactic acid: 1.1 Blood cultures: negative Vitals signs on admission: Temp 101.5, HR 90-103, RR 22, B/P 144/70, Spo2 99% 2l nc Treatment: ID Consult: 10/21: "Pulmonary source for fever is still most likely with this situation. Early pneumonia not evident on chest x-ray would be of concern. Antibiotic therapy with Rocephin will be utilized, he had had a dose of Levaquin in the emergency center. We'll monitor further fever. If fever remains resolved but has no other symptoms he be transitioned to a 5 day course of antibiotics for the acute exacerbation of his COPD. Antibiotics: Rocephin 1 gm IVP Q 24 hrs, IV Levaquin 750 mg OT IV Bolus: 500 cc fluid bolus In your professional opinion, please clarify if these findings signify one of the following conditions, whether the condition is POA, and cause, if known: Sepsis ruled out Sepsis Severe Sepsis Septic Shock Other, please specify Unable to determine Present on Admission: Yes No Identify the (suspected) organism Link or clarify if there is associated (due to/with): Organ failure Shock SIRS Criteria...2 or more of the following may indicate SIRS: Temperature < 96.8F (36C) or > 101.0F (38.3C) Heart Rate > 90 bpm Respiratory Rate > 20 breaths/min or PaCO2 < 32 mmHg White Blood Cell Count > 12,000 or < 4,000 cells/mm3 or > 10% bands Lactate >2.0 mmol/L (>4.0 is equivalent to septic shock) Please continue to document in your progress notes and discharge summary in order to capture severity of illness and risk of mortality. Include clinical findings that support your diagnosis. MTDD
--- NOTE | 2017-10-22 10:52 | CDI ---
Last Revision, June 2017 Documentation Clarification Form Date: 10/21/18 1049 From: Cookie Davila RN, CCDS Admit Date: 10/18/2017 11:35:00 AM Patient Name: Felipe Kim I Visit Number: [id number] ATTENTION: The Clinical Documentation Specialists (CDI) and [facility] Coding Staff appreciate your assistance in clarifying documentation. Please respond to the clarification below the line at the bottom and electronically sign. The CDI & [facility] Coding staff will review the response and follow-up if needed. Please note: Queries are made part of the Legal Health Record. If you have any questions, please contact the author of this message via ITS. Dr. Cosme Louise A diagnosis of anemia lacks specificity to accurately reflect your patients severity of condition and clarification is needed. History/Risk Factors: FUO, possible early pneumonia, septicemia, Parkinsons Clinical indicators: Hemoglobin: 11.6/11.9 Hematocrit: 38.6/37.8 Treatment: Lab monitoring daily In order to capture the severity of condition, please clarify the type of anemia and etiology if known: Acute blood loss anemia Acute on chronic blood loss anemia Chronic blood loss anemia Iron deficiency anemia Nutritional anemia Anemia of chronic kidney disease Unable to determine Other, please specify Please continue to document in your progress notes and discharge summary in order to capture severity of illness and risk of mortality. Include clinical findings that support your diagnosis. MTDD
[2017-10-22 11:59] LABS: Glucose,Whole Blood 149 mg/dL (75-99)
[2017-10-22 12:01] VITALS: BP 131/63; TEMP 97.5
--- NOTE | 2017-10-22 12:26 | MISC ---
MISCELLANOUS REPORT QUERY: The question is sepsis ruled out so on and so forth: Sepsis ruled out. Present on admission: Yes. Admitting diagnosis is chronic obstructive pulmonary disease with bronchitis. Question about anemia. It is unable to determine. MMODL / IJN: [id number] /
--- NOTE | 2017-10-22 18:56 | DS ---
DISCHARGE SUMMARY CHIEF COMPLAINT: Shortness of breath and fever. HISTORY OF PRESENT ILLNESS AND PHYSICAL EXAMINATION: Details of this man's history and physical can be found in the initial workup. LABORATORY STUDIES: While he was in the hospital, he had laboratory studies, details of which can be found in the laboratory section of his chart. COURSE IN THE HOSPITAL: After admission he was placed on bedrest, started on intravenous fluids and serial EKGs and enzymes. Troponins were up slightly, and he was seen by Cardiology. Enzymes remained normal otherwise and his temperature came down. It was felt that this likely was due to pulmonary infection and either minimal pneumonitis or bronchitis. Patient was seen by Infectious Disease. While he was in the hospital, he continued to complain of weakness, but otherwise remained fairly stable. Echocardiogram was done which was unremarkable. It was thought that he was stable enough to go home on 10/22, and he will follow up in the office in several days. FINAL DIAGNOSES: 1. Bronchitis. 2. Chronic obstructive pulmonary disease. 3. Alcoholism. 4. Parkinson's disease. OPERATIONS: None. CONSULTATIONS: 1. Infectious Disease. 2. Cardiology. He is improved. MMODL / IJN: [id number] /
== END 2017-10-22 14:48 | disposition home health service (06) | DRG 190 ==
LOC: EC 08:17 → 4MS4W 11:35 → 6SEL 12:14
PROVIDERS: ADMIT Family Medicine; ATTEND Family Medicine
DX: J44.1 Chronic obstructive pulmonary disease with (acute) exacerbation (principal); J18.9 Pneumonia, unspecified organism; G20 Parkinson's disease; J44.0 Chronic obstructive pulmonary disease with (acute) lower respiratory infection; Z79.899 Other long term (current) drug therapy; Z88.1 Allergy status to other antibiotic agents; D64.9 Anemia, unspecified; Z79.82 Long term (current) use of aspirin; F10.20 Alcohol dependence, uncomplicated; R19.7 Diarrhea, unspecified; I10 Essential (primary) hypertension; Z86.19 Personal history of other infectious and parasitic diseases; Z87.19 Personal history of other diseases of the digestive system; Z90.89 Acquired absence of other organs; Z90.49 Acquired absence of other specified parts of digestive tract; Z98.41 Cataract extraction status, right eye; Z98.42 Cataract extraction status, left eye; Z96.1 Presence of intraocular lens; F31.9 Bipolar disorder, unspecified; F17.210 Nicotine dependence, cigarettes, uncomplicated; Z82.49 Family history of ischemic heart disease and other diseases of the circulatory system; Z83.3 Family history of diabetes mellitus; Z79.891 Long term (current) use of opiate analgesic; Z88.8 Allergy status to other drugs, medicaments and biological substances; K21.9 Gastro-esophageal reflux disease without esophagitis; M19.90 Unspecified osteoarthritis, unspecified site
CPT/HCPCS: 36415; 71046; 80048; 80053; 81001; 82550; 82553; 83036; 83605; 83735; 84439; 84443; 84484; 85025; 85027; 85610; 85730; 87040; 87086; 87502; 93005; 93306; 94640; 96365; 96366; 96375; 99285

== ENCOUNTER 2019-02-16 11:41 | Emergency (ER) | payer MEDICARE ==
--- NOTE | 2019-02-16 12:10 | XR ---
EXAMINATION TYPE: XR chest 1V portable DATE OF EXAM: 02/16/2019 Comparison: 10/18/2017 Clinical History: 68-year-old male tube placement Findings: ET tube tip approximately 2 cm from the elvis. It could be pulled back by 1.5 cm and reassessed at f ollow-up. NG tube may also be present but the distal aspect is obscured by the degree of penetration. Heart borderline enlarged. Diffuse bilateral airspace opacity with relative sparing of the left base . Possible trace left effusion. Impression: Diffuse bilateral airspace disease, right greater than left. Probable pulmonary edema. Clinically cor relate. ET tube tip 2 cm from the elvis. It could be pulled back 1.5 cm and reassessed at follow-up. NG tube not well seen due to the degree of penetration.
[2019-02-16] MEDS ORDERED: AMIODARONE 360 MG in DEXTROSE 5% IN WATER 200 ML IV ONE ×2 (12:15)
[2019-02-16 12:35] LABS: ABG Base Excess -21.8 mmol/L; ABG HCO3 12 mmol/L (21-25); ABG Oxygen Saturation 78.5 % (94-97); ABG PO2 78 mmHg (83-108); ABG TCO2 14 mmol/L (19-24); Allen Test Performed? Yes
[2019-02-16 12:37] LABS: INR 1.2 (<1.2); Partial Thromboplastin Time 50.8 sec (22.0-30.0); Prothrombin Time 12.6 sec (9.0-12.0)
[2019-02-16 12:39] LABS: ABG PCO2 71 mmHg (35-45); ABG PH <7.00 (7.35-7.45)
[2019-02-16] MEDS ORDERED: LORazepam 2 MG/ML INJ IV STA (12:40)
[2019-02-16 12:41] LABS: Albumin 3.6 g/dL (3.5-5.0); Calcium 8.8 mg/dL (8.4-10.2); Magnesium 2.5 mg/dL (1.6-2.3); Total Bilirubin 0.4 mg/dL (0.2-1.3)
--- NOTE | 2019-02-16 12:44 | XR ---
EXAMINATION TYPE: XR abdomen 1V at 1223 hours, XR abdomen 1V at 1231 hours DATE OF EXAM: 02/16/2019 Comparison: None Clinical History: 68 year-old male NG tube placement, Chest Pain Findings: Examination 1223 hours is motion degraded. It shows prominent air distention of the stomach. The NG t ube is short. The tip of the NG tube is at the level of the GE junction. Supine imaging limited for a ssessment of free air. Examination of 1231 hours shows further advancement of NG tube. The sidehole is below the GE junction in the expected gastric fundus. A dilated small bowel loop in the left upper quadrant measures 3.7 c m. Overall improvement in the gastric distention. Supine imaging limited for assessment of free air. Impression: 1. 2 serial images of the abdomen after NG tube placement. Initial image shows the tip of the NG tube at the GE junction. The subsequent image shows satisfactory advancement into the stomach. 2. Initial prominent distention of the stomach. Subsequent decompression following successful NG tube placement. Dilated small bowel loop remains in the left upper quadrant measuring 3.7 cm. Ileus or ob struction are in the differential. 3. Supine imaging limited for assessment of free air.
[2019-02-16] MEDS ORDERED: HYDROCORTISONE SUCCINATE 100 MG/2 ML VIAL IV STA (12:47)
[2019-02-16 12:52] LABS: Anisocytosis Slight; HCT 41.3 % (39.0-53.0); HGB 10.4 gm/dL (13.0-17.5); Hypochromasia Marked; MCH 22.5 pg (25.0-35.0); MCHC 25.3 g/dL (31.0-37.0); MCV 89.1 fL (80.0-100.0); Mean Platelet Volume 7.9; Platelet Count 238 k/uL (150-450); RBC 4.64 m/uL (4.30-5.90); RDW 18.7 % (11.5-15.5)
--- NOTE | 2019-02-16 13:21 | CT ---
EXAMINATION TYPE: CT chest angio for PE DATE OF EXAM: 02/16/2019 COMPARISON: NONE HISTORY: Unresponsive. The patient coded on the table and therefore the exam is nondiagnostic for PE. CT DLP: 771.2 mGycm. Automated Exposure Control for Dose Reduction was Utilized. CONTRAST: CTA scan of the thorax is performed with IV Contrast, patient injected with 100 mL of Isovue 370, pul monary embolism protocol. MIP Images are created on CT scanner and reviewed. FINDINGS: LUNGS: There are high density pleural effusions, right greater than left (moderate on the right and s mall on the left). Given the high density these are concerning for hematothorax and given the multifo mariana consolidations that are predominantly central pulmonary hemorrhage is a primary concern. Scattere d geographic groundglass opacities are also seen. The patient is noted to be intubated with the endot irma tube at the level of the elvis. Retraction approximately 2 cm is recommended. Enteric tube i s also seen, appearing appropriately placed. Emphysematous changes are present of the lung apices. MEDIASTINUM: Bolus timing is nondiagnostic for pulmonary embolus. Probable coronary artery stent and severe cachil dehe coronary artery atherosclerosis is seen.. There are no greater than 1 cm hilar or medi astinal lymph nodes. Heart is enlarged. No pericardial effusion. OTHER: Pancreatic parenchymal atrophy is present as well as lobulated contour of the right upper pole of the kidney on image 146. Splenule is noted adjacent to the spleen. Old fracture deformity, right lateral mid rib is seen. Mild multilevel degenerative changes of the spine. IMPRESSION: 1. The patient coded on the table and therefore the exam is nondiagnostic for PE. 2. Findings concerning for pulmonary hemorrhage and bilateral hematothorax. Alternatively ARDS, multi focal pneumonia, or pulmonary edema are possible. 3. Endotracheal tube is at the level of elvis and should be retracted approximately 2 cm for optimal placement. 4. Lobulated contour of the right kidney. Pending clinical status renal ultrasound could assess for m ass.
--- NOTE | 2019-02-16 13:33 | CT ---
EXAMINATION TYPE: CT brain cspine wo con DATE OF EXAM: 02/16/2019 COMPARISON: 01/20/2016 HISTORY: Unresponsive. The patient coded on the table. Motion is seen throughout the examination. CT DLP: 1740.9 mGycm. Automated Exposure Control for Dose Reduction was Utilized. TECHNIQUE: CT scan of the head and cervical spine are performed without contrast. FINDINGS: There is hyperattenuation along the falx cerebri such as on axial image 32 and 31, this rep resents a change from the prior exam and a suspected to represent a layering subdural hematoma. The d egree of sulcal prominence is also less than on the prior of 01/20/2016 and a degree of cerebral edema suspected in this patient with cardiopulmonary arrest. Confluent areas of hypoattenuation are seen t hroughout the periventricular and subcortical white matter. Old pontine lacunar injury is CSF attenua geovani. Degree of ventricular prominence is unchanged from the prior. Calvarium appears intact. Paranasa l sinuses and mastoid air cells are well aerated. Dense atherosclerosis is seen of the intracranial v asculature. Cervical spine is visualized in its entirety from C1 through upper thoracic levels. No acute fracture is seen. Persistent grade 1 anterolisthesis of C3 on C4 is present similar to the prior of 01/20/2016 . There is straightening of usual cervical lordosis. Multilevel intervertebral disc space narrowing, endplate sclerosis, and anterior osteophytes are present. 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 Prevertebral soft tissue appears within normal limits. The C1-C2 articulation is unremarkable. Visualized portions of the upper lungs are discussed on the CT chests of the same date. Note is made of medialization of the carotid arteries that are densely calcified. IMPRESSION: Exam is limited by motion. 1. There is no acute fracture or dislocation evident in the cervical spine. 2. Some degree of cerebral edema is present as there is less pronounced sulcal prominence particularl y at the skull vertex comparison to the prior of 01/20/2016. Confluent patchy areas of hypoattenuation throughout the deep white matter are similar to the prior, likely on the basis of chronic microangio [place]. 3. Subdural hematoma layering along the falx cerebri is suspected as there is a change from the prior of 01/20/2016. Findings were discussed with Dr. Nieto at 1330pm on 02/16/19.
[2019-02-16 13:52] LABS: Band Neutrophils % 1 %; Metamyelocytes # (M) 0.15 k/uL (0); Metamyelocytes % 1 %; Myelocytes # (M) 0.15 k/uL (0); Myelocytes % 1 %; Neutrophils % (M) 60 %; Nucleated Red Blood Cells 1 /100 WBC (0-0); Total Cells Counted 200
[2019-02-16 13:53] LABS: Lymphocytes # (M) 4.79 k/uL (1.0-4.8); Monocytes # (M) 0.87 k/uL (0-1.0); WBC 14.5 k/uL (3.8-10.6)
[2019-02-16 13:54] LABS: Poikilocytosis (M) Present
--- NOTE | 2019-02-16 13:54 | ED ---
General Adult HPI - General Chief complaint: Cardiac Arrest/CPR Stated complaint: cardiac arrest Time Seen by Provider: 02/16/19 11:41 Source: EMS, RN notes reviewed Mode of arrival: EMS - History of Present Illness Initial comments: This is a 68-year-old male who arrived to the emergency department as a cardiac arrest. Patient was asystole on arrival. According to EMS patient was found down by the son who is blind he immediately called 911. The call went out 11:00. When EMS arrived they noted the patient to be asystole we gave the patient epinephrine shortly thereafter he was in V. fib and shocked 5 times daily may amiodarone 300 and then 150 and continued epinephrine. By the time he arrived the patient been shocked 5 times given 2 doses of amiodarone as bolus and given 6 epinephrines. Patient on arrival again was 80 systolic. No other further history was available this time other than the fact that he was a COPD or and a drinker - Related Data Home Medications Medication Instructions Recorded Confirmed HYDROcodone/APAP 5-325MG [[place] 1 tab PO TID PRN 01/12/15 02/16/19 5-325] Omeprazole [PriLOSEC] 20 mg PO BID 01/12/15 02/16/19 Potassium Chloride [Klor-Con 20] 20 meq PO BID 01/12/15 02/16/19 Allopurinol [Zyloprim] 300 mg PO DAILY 10/18/17 02/16/19 Amantadine HCl [Symmetrel] 200 mg PO BID 10/18/17 02/16/19 Carbidopa-Levodopa 25-100 mg 1 tab PO TID 10/18/17 02/16/19 [Sinemet 25-100 mg] Gabapentin 800 mg PO QID PRN 10/18/17 02/16/19 LORazepam [Ativan] 0.5 mg PO HS PRN 10/18/17 02/16/19 Ergocalciferol (Vitamin D2) 50,000 unit PO Q28D 02/16/19 02/16/19 [Drisdol] Olopatadine HCl [Patanol] 1 drop BOTH EYES BID 02/16/19 02/16/19 methylPREDNISolone [Medrol Dose See Taper PO DIRECTED 02/16/19 02/16/19 Pack] Allergies Allergy/AdvReac Type Severity Reaction Status Date / Time clindamycin Allergy Unknown Verified 02/16/19 13:09 sulfur dioxide AdvReac Itching Verified 02/16/19 13:09 Review of Systems ROS Statement: Those systems with pertinent positive or pertinent negative responses have been documented in the HPI. ROS Other: All systems not noted in ROS Statement are negative. Past Medical History Past Medical History: COPD, Hypertension Additional Past Medical History / Comment(s): nerve pain from, Shingles (2Y ago), States Dr. Louise stopped his BP pills when he quit drinking. " No longer have high blood pressure" History of Any Multi-Drug Resistant Organisms: C-DIFF Date of last positivie culture/infection: 2014 MDRO Source:: stool Past Surgical History: Bowel Resection, Hernia Repair, Tonsillectomy Additional Past Surgical History / Comment(s): Partial colectomy for unknown cause (pt cannot recall why it was necessary), ruptured umbilical repair, bilateral cataract remaoval with lens implants, R elbow repair of tendons/ligament due to injury,. bilateral carpal tunnel surgery, colonoscopy since colectomy-normal, Past Anesthesia/Blood Transfusion Reactions: No Reported Reaction Additional Past Anesthesia/Blood Transfusion Reaction / Comment(s): Pt has never recieved blood. Past Psychological History: Bipolar Smoking Status: Current some day smoker Past Alcohol Use History: None Reported Past Drug Use History: None Reported - Past Family History Father Family Medical History: Diabetes Mellitus, Hypertension Additional Family Medical History / Comment(s): Enlarged heart Mother Family Medical History: Diabetes Mellitus, Hypertension General Exam - General Exam Comments Initial Comments: GENERAL: Patient is completely unresponsive no movement no spontaneous breathing ENT: Moist mucous membranes. EYES: The sclera were anicteric and conjunctiva were pink and moist. Pupils were fixed PULMONARY: No spontaneous breaths were heard however when the patient was being bagged she did have some subtle breath sounds bilaterally no breath sounds in the epigastric region CARDIOVASCULAR: No heart sounds were heard ABDOMEN: Soft and nontender with normal bowel sounds. SKIN: Skin is clear with no lesions or rashes and otherwise unremarkable. NEUROLOGIC: Patient was nonresponsive GCS of 3 MUSCULOSKELETAL: No movement of any extremities PSYCHIATRIC: Unable to obtain secondary to patient's condition Medical Decision Making - Medical Decision Making Shortly after patient arrived I gave an epinephrine continued CPR and patient had a spontaneous pulse at that time we then started norepinephrine and amiodarone and patient's pulse continued and patient had a viable blood pressure at this time so we call cardiology family dentist came down to see the patient he did not believe intervention at this time was necessary. Patient had lab work drawn and a CAT scan was ordered. EKG was done and showed atrial fibrillation at 92 bpm QRS is 108 QTC intervals 358 QTC is 442. Patient's EKG did indicate some ST segment depression in leads V5 V6 [address] segment elevation was noted. Patient was going to get a CAT scan of of his head and neck because he did fall in the bathroom according to son. Patient was auscultated get a CT of his chest to rule out PE because. Patient coded on the CAT scan machine and dietary spoke to family and they did not want any further CPR none was done he was eventually pronounced at 103. I spoke with Dr. Hinds. I spoke with the medical claims examiner she released the body. - Lab Data Result diagrams: 02/16/19 12:00 02/16/19 12:00 Lab Results 02/16/19 02/16/19 02/16/19 Range/Units 12:00 12:00 12:00 WBC 14.5 H (3.8-10.6) k/uL RBC 4.64 (4.30-5.90) m/uL Hgb 10.4 L (13.0-17.5) gm/dL Hct 41.3 (39.0-53.0) % MCV 89.1 (80.0-100.0) fL MCH 22.5 L (25.0-35.0) pg MCHC 25.3 L (31.0-37.0) g/dL RDW 18.7 H (11.5-15.5) % Plt Count 238 (150-450) k/uL Neutrophils % (Manual) 60 % Band Neutrophils % 1 % Lymphocytes % (Manual) 33 % Monocytes % (Manual) 6 % Metamyelocytes % 1 % Myelocytes % 1 % Neutrophils # (Manual) 8.80 H (1.3-7.7) k/uL Lymphocytes # (Manual) 4.79 (1.0-4.8) k/uL Monocytes # (Manual) 0.87 (0-1.0) k/uL Metamyelocytes # (Man) 0.15 H (0) k/uL Myelocytes # (Manual) 0.15 H (0) k/uL Nucleated RBCs 1 H (0-0) /100 WBC Hypochromasia Marked Poikilocytosis (manual Present Anisocytosis Slight PT (9.0-12.0) sec INR (<1.2) APTT (22.0-30.0) sec Sample Site ABG pH (7.35-7.45) ABG pCO2 (35-45) mmHg ABG pO2 (83-108) mmHg ABG HCO3 (21-25) mmol/L ABG Total CO2 (19-24) mmol/L ABG O2 Saturation (94-97) % ABG Base Excess mmol/L Kumar Test FiO2 % Sodium 144 (137-145) mmol/L Potassium 5.0 (3.5-5.1) mmol/L Chloride 109 H (98-107) mmol/L Carbon Dioxide 14 L (22-30) mmol/L Anion Gap 21 mmol/L BUN 20 (9-20) mg/dL Creatinine 1.15 (0.66-1.25) mg/dL Est GFR (CKD-EPI)AfAm 77 (>60 ml/min/1.73 sqM) Est GFR (CKD-EPI)NonAf 66 (>60 ml/min/1.73 sqM) Glucose 289 H (74-99) mg/dL Calcium 8.8 (8.4-10.2) mg/dL Magnesium 2.5 H (1.6-2.3) mg/dL Total Bilirubin 0.4 (0.2-1.3) mg/dL AST 30 (17-59) U/L ALT 12 L (21-72) U/L Alkaline Phosphatase 105 (38-126) U/L Troponin I (0.000-0.034) ng/mL NT-Pro-B Natriuret Pep 88284 pg/mL Total Protein 6.0 L (6.3-8.2) g/dL Albumin 3.6 (3.5-5.0) g/dL 02/16/19 02/16/19 02/16/19 Range/Units 12:00 12:00 12:23 WBC (3.8-10.6) k/uL RBC (4.30-5.90) m/uL Hgb (13.0-17.5) gm/dL Hct (39.0-53.0) % MCV (80.0-100.0) fL MCH (25.0-35.0) pg MCHC (31.0-37.0) g/dL RDW (11.5-15.5) % Plt Count (150-450) k/uL Neutrophils % (Manual) % Band Neutrophils % % Lymphocytes % (Manual) % Monocytes % (Manual) % Metamyelocytes % % Myelocytes % % Neutrophils # (Manual) (1.3-7.7) k/uL Lymphocytes # (Manual) (1.0-4.8) k/uL Monocytes # (Manual) (0-1.0) k/uL Metamyelocytes # (Man) (0) k/uL Myelocytes # (Manual) (0) k/uL Nucleated RBCs (0-0) /100 WBC Hypochromasia Poikilocytosis (manual Anisocytosis PT 12.6 H (9.0-12.0) sec INR 1.2 H (<1.2) APTT 50.8 H (22.0-30.0) sec Sample Site rbrach ABG pH <7.00 L* (7.35-7.45) ABG pCO2 71 H* (35-45) mmHg ABG pO2 78 L (83-108) mmHg ABG HCO3 12 L (21-25) mmol/L ABG Total CO2 14 L (19-24) mmol/L ABG O2 Saturation 78.5 L (94-97) % ABG Base Excess -21.8 mmol/L Kumar Test Yes FiO2 100 % Sodium (137-145) mmol/L Potassium (3.5-5.1) mmol/L Chloride (98-107) mmol/L Carbon Dioxide (22-30) mmol/L Anion Gap mmol/L BUN (9-20) mg/dL Creatinine (0.66-1.25) mg/dL Est GFR (CKD-EPI)AfAm (>60 ml/min/1.73 sqM) Est GFR (CKD-EPI)NonAf (>60 ml/min/1.73 sqM) Glucose (74-99) mg/dL Calcium (8.4-10.2) mg/dL Magnesium (1.6-2.3) mg/dL Total Bilirubin (0.2-1.3) mg/dL AST (17-59) U/L ALT (21-72) U/L Alkaline Phosphatase (38-126) U/L Troponin I 0.260 H* (0.000-0.034) ng/mL NT-Pro-B Natriuret Pep pg/mL Total Protein (6.3-8.2) g/dL Albumin (3.5-5.0) g/dL Critical Care Time Critical Care Time: Yes Total Critical Care Time: 75 Disposition Clinical Impression: Cardiac arrest Disposition: Referrals: Cosme Louise MD [Primary Care Provider] - 1-2 days Time of Disposition: 13:54 Preliminary Cause of : Cardiopulmonary arrest
[2019-02-16 15:36] VITALS: BP 84/55
== END 2019-02-16 15:41 | disposition expired ==
LOC: EC 11:41
DX: I46.9 Cardiac arrest, cause unspecified (principal); I48.91 Unspecified atrial fibrillation; J44.9 Chronic obstructive pulmonary disease, unspecified; I10 Essential (primary) hypertension; F31.9 Bipolar disorder, unspecified; F17.200 Nicotine dependence, unspecified, uncomplicated; Z88.1 Allergy status to other antibiotic agents; Z91.048 Other nonmedicinal substance allergy status; Z79.52 Long term (current) use of systemic steroids; Z79.899 Other long term (current) drug therapy; W19.XXXA Unspecified fall, initial encounter; Z82.49 Family history of ischemic heart disease and other diseases of the circulatory system
CPT/HCPCS: 36415; 36600; 94002; 93005; 83880; 80053; 82805; 83735; 84484; 85025; 85610; 85730; 71045; 74018; 72125; 70450; 71275; 99291; 99292; 92950; 96365; 96375; J2060; J0282; Q9967